=== PATIENT | female | born 1985 | race Caucasian/White ===

== ENCOUNTER 2020-02-27 23:15 | Emergency (ER) | payer OTHER, SELFPAY ==
[2020-02-27 23:21] VITALS: BP 133/66; PULSE 66; RESP 16; TEMP 36.7; O2SAT 99
[2020-02-27 23:57] LABS: Add Manual Diff / Slide Review NO; Basophils Absolute Auto 100 /uL (0-100); Eosinophils Absolute Auto 100 /uL (0-450); Eosinophils Percent Auto 2.2 % (2-4); Hematocrit 35.4 % (36-46); Hemoglobin 12.1 g/dL (12.0-16.0); Lymphocytes Absolute Auto 2800 /uL (1100-4500); Mean Corpuscular HGB Conc 34.3 % (30-36); Mean Corpuscular Hemoglobin 29.6 PG (26-34); Mean Corpuscular Volume 86.4 fL (80-100); Monocytes Absolute Auto 700 /uL (0-900); Monocytes Percent Auto 10.7 % (3-14); Neutrophils Absolute Auto 2900 /uL (1500-7000); Neutrophils Percent Auto 44.1 % (50-75); Platelet Count 278 X10^3/uL (150-400); Red Cell Distribution Width 12.3 % (11.6-14.8); White Blood Cell Count 6.6 X10^3/uL (4.5-11.0)
[2020-02-28 00:12] LABS: PTT Partial Thromboplastin Tim 33 SECONDS (26.4-36.2); Prothrombin Time 11.9 SECONDS (10.1-12.7)
[2020-02-28 00:22] LABS: Alanine Aminotransferase 14 IU/L (<35); Albumin 4.2 g/dL (3.5-5.0); Albumin Globulin Ratio 1.4 (1.0-2.8); Alkaline Phosphatase 34 U/L (38-126); Aspartate Aminotransferase 21 IU/L (14-36); BUN Creatinine Ratio 16.9 (6-22); Bilirubin Total 0.5 mg/dL (0.2-1.3); Blood Urea Nitrogen 14 mg/dL (7-17); Calcium 9.1 mg/dL (8.4-10.2); Carbon Dioxide 29 mmol/L (22-32); Chloride 102 mmol/L (98-107); Estimated Glomerular Filt Rate > 60.0 mL/min (>60); Globulin 3.1 g/dL (1.7-4.1); Glucose 96 mg/dL (70-100); HEMOLYSIS < 15 (0-50); Lipase 76 U/L (23-300); Potassium 3.9 mmol/L (3.4-5.1); Sodium 138 mmol/L (137-145); Total Protein 7.3 g/dL (6.3-8.2)
--- NOTE | 2020-02-28 00:24 | ED.GENADULT ---
HPI - General Adult General Chief complaint: Abdominal Pain Stated complaint: abdominal pain off and on for a month Time Seen by Provider: 02/27/20 23:39 Source: patient Mode of arrival: Ambulatory Limitations: no limitations History of Present Illness HPI narrative: 34-year-old female here for evaluation of right-sided pus right upper quadrant abdominal pain. She states that she has had pain like this off and on for the past several weeks however this evening the pain became somewhat worse so she came to the emergency department for evaluation. No nausea vomiting. No urinary symptoms. No change in bowel habits. States she is approximately alf through her menstrual cycle. She has been evaluated for this pain in the past. Was started on a proton pump inhibitor which she states that she has been taking on a daily basis. No fevers. Does state that the pain moves. Occasional is in the right upper quadrant left lower quadrant and right lower quadrant. She does state that peanut butter makes the symptoms worse. Related Data Allergies Allergy/AdvReac Type Severity Reaction Status Date / Time cefaclor [From [facility]] Allergy Verified 02/27/20 23:23 Review of Systems Constitutional Constitutional: Denies fever(s) and Denies headache(s) ENT Ears, Nose, Mouth, and Throat: Denies headache(s) Cardiovascular Cardiovascular: Denies chest pain and Denies dyspnea Respiratory Respiratory: Denies dyspnea Gastrointestinal Gastrointestinal: Reports abdominal pain, Denies change in bowel habits and Denies vomiting Genitourinary Genitourinary: Denies dysuria Genitourinary: Denies dysuria and Denies vaginal discharge Musculoskeletal Musculoskeletal: Denies arthralgias and Denies myalgias Integumentary/Breasts Skin/Breast: Denies rash Neurologic Neurologic: Denies behavioral changes and Denies headache(s) Psychiatric Psychiatric: Denies behavioral changes Hematologic/Lymphatic Hematologic/Lymphatic: Denies easy bleeding and Denies easy bruising Patient History Medical History Healthy adult (Acute) Social History Smoking Status: Never smoker Smoking Status: Never smoker Exam Initial Vital Signs Initial Vital Signs: Vital Signs Temperature 98.1 F 02/27/20 23:21 Pulse Rate 66 02/27/20 23:21 Respiratory Rate 16 02/27/20 23:21 Blood Pressure 133/66 02/27/20 23:21 Pulse Oximetry 99 02/27/20 23:21 Const General: cooperative and comfortable Limitations: mental status not altered HENMT Head: normal to inspection and normocephalic Resp Effort & Inspection: normal respiratory effort Auscultation: clear to auscultation bilaterally Cardio Rate: regular rate Rhythm: regular rhythm GI Inspection: non-distended Palpation: soft, No firm and tender (Right upper quadrant) Back/Spine/Pelvis Back: No CVA tenderness Skin Lesions: no lesions Rashes: no rashes Neuro General: patient alert and patient awake Cognition: normal cognition Speech: speech normal Sensory Exam: no sensory deficits noted Extrem General: normal to inspection and capillary refill normal Psych Appearance: grossly normal and well kempt Scores GCS [place] coma scale eye opening: Spontaneous Michelle coma scale verbal response: Orientated [place] coma scale motor response: Obey commands Michelle coma scale total score: 15 Course Orders Ordered: ED Orders 02/27/20 23:45 Complete Blood Count AUTO DIFF Stat Comprehensive Metabolic Panel Stat Lipase Stat Partial Thromboplastin Time Stat Prothrombin Time INR Stat Discontinued Medications Tramadol HCl (Ultram 50mg Prepack) 1 bottle MISC SEEINSTR ONE Stop: 02/28/20 00:58 Vital Signs Vital signs: Vital Signs - 8 hr 02/27/20 23:21 02/28/20 01:03 Temperature 98.1 F Pulse Rate 66 68 Respiratory Rate 16 18 Blood Pressure 133/66 130/68 Pulse Oximetry 99 98 Medical Decision Making Lab Data Lab results reviewed: Yes I reviewed the patient's lab results. Result diagrams: 02/27/20 23:45 02/27/20 23:45 Labs: Lab Results 02/27/20 02/27/20 02/27/20 Range/Units 23:45 23:45 23:45 WBC 6.6 (4.5-11.0) X10^3/uL RBC 4.10 (4.0-5.2) X10^6/uL Hgb 12.1 (12.0-16.0) g/dL Hct 35.4 L (36-46) % MCV 86.4 (80-100) fL MCH 29.6 (26-34) PG MCHC 34.3 (30-36) % RDW 12.3 (11.6-14.8) % Plt Count 278 (150-400) X10^3/uL Neut % (Auto) 44.1 L (50-75) % Lymph % (Auto) 42.0 H (25-40) % [place] % (Auto) 10.7 (3-14) % Eos % (Auto) 2.2 (2-4) % Baso % (Auto) 1.0 (0-2) % Neut # (Auto) 2900 (0340-7148) /uL Lymph # (Auto) 2800 (0832-4462) /uL [place] # (Auto) 700 (0-900) /uL Eos # (Auto) 100 (0-450) /uL Baso # (Auto) 100 (0-100) /uL PT 11.9 (10.1-12.7) SECONDS INR 1.0 (0.9-1.3) APTT 33 (26.4-36.2) SECONDS Sodium 138 (137-145) mmol/L Potassium 3.9 (3.4-5.1) mmol/L Chloride 102 (98-107) mmol/L Carbon Dioxide 29 (22-32) mmol/L BUN 14 (7-17) mg/dL Creatinine 0.83 (0.52-1.04) mg/dL Estimated GFR > 60.0 (>60) mL/min BUN/Creatinine Ratio 16.9 (6-22) Glucose 96 (70-100) mg/dL Calcium 9.1 (8.4-10.2) mg/dL Total Bilirubin 0.5 (0.2-1.3) mg/dL AST 21 (14-36) IU/L ALT 14 (<35) IU/L Alkaline Phosphatase 34 L (38-126) U/L Total Protein 7.3 (6.3-8.2) g/dL Albumin 4.2 (3.5-5.0) g/dL Globulin 3.1 (1.7-4.1) g/dL Albumin/Globulin Ratio 1.4 (1.0-2.8) Lipase 76 (23-300) U/L Point of Care Testing Test Results Negative Urine Dip Bedside Urine Glucose Negative Bedside Urine Bilirubin - Negative Bedside Urine Ketone - Negative Urine Specific [place] 1.015 Bedside Urine Occult Blood - Negative Bedside Urine pH 6.0 Bedside Urine Protein - Negative Bedside Urine Urobilinogen - Negative Bedside Urine Nitrite - Negative Bedside Urine Leukocytes - Negative Esterase Point of care testing: Point of Care Testing Test Results Negative Urine Dip Bedside Urine Glucose Negative Bedside Urine Bilirubin - Negative Bedside Urine Ketone - Negative Urine Specific [place] 1.015 Bedside Urine Occult Blood - Negative Bedside Urine pH 6.0 Bedside Urine Protein - Negative Bedside Urine Urobilinogen - Negative Bedside Urine Nitrite - Negative Bedside Urine Leukocytes - Negative Esterase MDM Narrative Medical decision making narrative: test was negative. Urinalysis unremarkable. Labs unremarkable to include LFTs and lipase. Symptoms been off and on for the past several weeks. This potentially could be gallbladder pathology however she does have a relatively benign exam today and her LFTs and lipase are unremarkable. She does state that the pain changes throughout her abdomen which does not point towards gallbladder issues. I feel that we can hold on further workup to include a right upper quadrant ultrasound given her history and physical exam and labs today. I informed the patient that he would be extremely helpful for her to keep a diary of her symptoms to include when she has symptoms and when and if they are related to either her menstrual cycles or eating and the type of foods that she is eating. Patient was given return precautions. Will have her follow-up with her primary provider. She expressed understanding and agreement. Discharge Plan Departure Patient Disposition: Home Clinical Impression: Abdominal pain Discharge Date/Time: 02/28/20 01:03 Instructions: DI for Abdominal Pain-Adult Activity Restrictions/Additional Instructions: Recommend that you do keep a record of the events surrounding the times when you have an increase in your abdominal pain. This will be very helpful with your primary provider in determining what potential further studies you may need. I do recommend you contact the [facility] at [phone] to establish this primary provider. Return to the emergency department for any new or worsening symptoms
[2020-02-28 01:03] VITALS: BP 130/68; PULSE 68; RESP 18; O2SAT 98
== END 2020-02-28 01:03 | disposition home or self-care (01) ==
PROVIDERS: Emergency Provider Emergency Medicine
DX: R10.11 Right upper quadrant pain (principal)
CPT/HCPCS: 36415; 80053; 81003; 81025; 83690; 85025; 85610; 85730; 99282; 99283

== ENCOUNTER 2020-03-12 15:56 | Emergency (ER) | payer OTHER, SELFPAY ==
[2020-03-12 16:10] VITALS: BP 111/53; PULSE 102; RESP 20; TEMP 36.4; O2SAT 100
--- NOTE | 2020-03-12 17:29 | DI.US.S_ITS ---
PROCEDURE: US PELVIC COMPLETE INDICATIONS: RIGHT PELVIC PAIN TECHNIQUE: Real-time scanning was performed of the pelvic organs, with image documentation. Additional endovaginal scanning was necessary due to incomplete visualization of the adnexal and endometrial structures by transabdominal scanning. COMPARISON: None. FINDINGS: Transabdominal scanning: Limited scanning through the kidneys shows no hydronephrosis. No pathologic free abdominal or pelvic fluid. Endovaginal scanning: Uterus: Uterus is normal in size at 10.2 x 4.9 x 6.7 cm. The endometrium measures 16.2 mm in combined thickness. No gross endometrial mass or fluid is seen. No discrete uterine fibroid. Ovaries: Right ovary measures 2.7 x 2 x 3.6 centimeters in size. Left ovary measures 3.5 x 2.8 x 3.1 centimeters in size. Complex cystic structure in left adnexa is seen measures 1.9 x 1.7 x 1.7 centimeters in size. No internal vascularity. Normal arterial and venous flow is seen in bilateral ovaries on color Doppler images. IMPRESSION: 1. Normal appearing uterus and endometrium. 2. Normal appearing right ovary. No evidence of ovarian torsion. Suggestion of a complex cyst or hemorrhagic cyst in left ovary. No solid appearing ovarian lesion. Dictated by: Sinan Mariee M.D. on 03/12/2020 at 17:38 Approved by: Sinan Mariee M.D. on 03/12/2020 at 17:41
[2020-03-12 17:45] LABS: Add Manual Diff / Slide Review NO; Basophils Absolute Auto 0 /uL (0-100); Basophils Percent Auto 0.6 % (0-2); Eosinophils Absolute Auto 100 /uL (0-450); Eosinophils Percent Auto 1.2 % (2-4); Hematocrit 38.9 % (36-46); Hemoglobin 13.3 g/dL (12.0-16.0); Lymphocytes Absolute Auto 2700 /uL (1100-4500); Lymphocytes Percent Auto 42.4 % (25-40); Mean Corpuscular HGB Conc 34.3 % (30-36); Mean Corpuscular Hemoglobin 29.6 PG (26-34); Mean Corpuscular Volume 86.2 fL (80-100); Monocytes Absolute Auto 600 /uL (0-900); Monocytes Percent Auto 9.5 % (3-14); Neutrophils Absolute Auto 3000 /uL (1500-7000); Neutrophils Percent Auto 46.3 % (50-75); Platelet Count 284 X10^3/uL (150-400); Red Blood Cell Count 4.51 X10^6/uL (4.0-5.2); Red Cell Distribution Width 12.2 % (11.6-14.8); White Blood Cell Count 6.5 X10^3/uL (4.5-11.0)
[2020-03-12 18:03] LABS: Lactate (Lactic Acid) 0.5 mmol/L (0.7-2.1)
[2020-03-12 18:04] LABS: Alanine Aminotransferase 13 IU/L (<35); Albumin 4.6 g/dL (3.5-5.0); Albumin Globulin Ratio 1.3 (1.0-2.8); Alkaline Phosphatase 36 U/L (38-126); Amylase 71 U/L (30-110); Aspartate Aminotransferase 21 IU/L (14-36); BUN Creatinine Ratio 13.6 (6-22); Bilirubin Total 0.3 mg/dL (0.2-1.3); Blood Urea Nitrogen 11 mg/dL (7-17); Calcium 9.1 mg/dL (8.4-10.2); Carbon Dioxide 31 mmol/L (22-32); Chloride 104 mmol/L (98-107); Estimated Glomerular Filt Rate > 60.0 mL/min (>60); Globulin 3.5 g/dL (1.7-4.1); Glucose 91 mg/dL (70-100); HEMOLYSIS < 15 (0-50); Lipase 88 U/L (23-300); Potassium 3.8 mmol/L (3.4-5.1); Sodium 140 mmol/L (137-145); Total Protein 8.1 g/dL (6.3-8.2)
[2020-03-12] MEDS: KETOROLAC 60 MG/2 ML VIAL 30 MG IM (19:42)
[2020-03-12 20:04] VITALS: PULSE 92; RESP 20; O2SAT 100
--- NOTE | 2020-03-12 20:17 | ED.ABDPAIN ---
HPI - Abdominal Pain <MICHEL CarboneP-BC - Last Filed: 03/12/20 20:22> General Chief Complaint: Abdominal Pain Stated Complaint: abdominal pain Time Seen by Provider: 03/12/20 16:48 Source: patient Mode of arrival: Ambulatory Limitations: no limitations History of Present Illness HPI narrative: The patient is a 34-year-old female nonsmoker with history of abdominal pain who presents with a chief complaint of continued abdominal pain. She states that this has been going on for several weeks, almost 2 months at this point. A few days ago she felt nauseous. She was having abdominal pain on her right lower quadrant, right upper quadrant, left upper quadrant, but not her left lower quadrant. She was seen and evaluated in the emergency department several weeks ago. She denies any dysuria urgency or frequency. She denies any risk of sexually transmitted infections. She states she is pain-free at this time, her primary care provider wanted to do an outpatient ultrasound, but they were unable to fit her in today so she was referred to the emergency department. Primary concern is possibility of ovarian cyst. She denies any vaginal discharge or vaginal irritation. She has not taken anything to feel better. The patient denies any pain during my interview. Related Data Home Medications Medication Instructions Recorded Confirmed ashwagandha PO 03/06/20 03/12/20 magnesium PO 03/06/20 03/12/20 milk thistle seed extract 140 mg 140 mg PO BID 03/06/20 03/12/20 capsule dwqkcfpwhegz-pjg-lleo-FA-vit K PO 03/06/20 03/12/20 pre and probiotic PO 03/06/20 03/12/20 selenium 200 mcg tablet 200 mcg PO DAILY 03/06/20 03/12/20 turmeric PO 03/06/20 03/12/20 vitamin C PO 03/06/20 03/12/20 vitamin E PO 03/06/20 03/12/20 vitamin a PO 03/06/20 03/12/20 zinc 50 mg tablet 50 mg PO DAILY 03/06/20 03/12/20 Previous Rx's Medication Instructions Recorded ketorolac 10 mg PO TID PRN #14 tab 03/12/20 Allergies Allergy/AdvReac Type Severity Reaction Status Date / Time cefaclor [From [facility]] Allergy Verified 03/06/20 15:49 Review of Systems <ROOPA Carbone - Last Filed: 03/12/20 20:22> Review of Systems Narrative: GENERAL: Denies chills, fatigue, malaise, fever, sweats. HEENT: Denies sinus pain, ear pain, sore throat, difficulty swallowing, dizziness. RESPIRATORY: Denies dyspnea, cough, wheezing, hemoptysis, sputum. CARDIOVASCULAR: Denies chest pain, palpitations, orthopnea, edema, GASTROINTESTINAL: See HPI : Denies dysuria, frequency, incontinence, hematuria, urinary retention. MUSCULOSKELETAL: denies weakness, joint pain, or bony pain SKIN: Denies rash, skin lesions, or other NEUROLOGIC: Denies weakness, headache, numbness, change in speech, confusion, seizures, incoordination. PSYCHIATRIC: No concerning psychosocial issues. 12 point review of systems is negative except for those stated above Patient History <ROOPA Carbone - Last Filed: 03/12/20 20:22> Medical History (Updated 03/12/20 @ 19:58 by ROOPA Carbone) Abnormal Pap smear of cervix (Resolved ~2004) Acne (Acute ~2013) Chicken pox (Resolved ~1992) Chronic back pain (Chronic ~2012) Food intolerance (Acute) Healthy adult (Acute) Human papilloma virus (Resolved ~2004) Measles (Resolved ~1989) Shoulder pain (Chronic ~2015) Family History Mother Gallbladder sludge Hyperlipidemia Colon polyps Hypertension Grandfather Skin cancer History of heart disease Hyperlipidemia Hypertension Diverticulitis Pancreatitis Grandmother Rectal cancer Diabetes mellitus History of heart disease Hyperlipidemia Hypertension Social History Smoking Status: Never smoker Smoking Status: Never smoker Exam <ROOPA Carbone - Last Filed: 03/12/20 20:22> Narrative Exam Narrative: GENERAL: This is a well-nourished, well-developed patient, in no acute distress HEAD: Atraumatic. Normocephalic. No temporal or scalp tenderness. EYES: Pupils equal round and reactive. Extraocular motions intact. No scleral icterus. No injection or drainage. ENT: Nose without bleeding, purulent drainage or septal hematoma. Throat without erythema, tonsillar hypertrophy or exudate. Uvula midline. Airway patent. NECK: Trachea midline. No JVD or lymphadenopathy. Supple, nontender, no meningeal signs. CARDIOVASCULAR: Regular rate and rhythm RESPIRATORY: Clear to auscultation. Breath sounds equal bilaterally. No wheezes, rales, or rhonchi. No cough. No increased respiratory effort. No accessory muscle use. GASTROINTESTINAL: Abdomen soft, non-tender, nondistended. No hepato-splenomegaly, or palpable masses. No guarding. Active bowel sounds all 4 quadrants. EXTREMITIES: No clubbing, cyanosis, or edema. No joint tenderness, effusion, or edema noted. BACK: Nontender without deformity or crepitance. No flank tenderness. NEURO: AOx3. SKIN: No rash or erythema on visible skin Initial Vital Signs Initial Vital Signs: Vital Signs Temperature 97.5 F L 03/12/20 16:10 Pulse Rate 102 H 03/12/20 16:10 Respiratory Rate 03/12/20 16:10 Blood Pressure 111/53 L 03/12/20 16:10 Pulse Oximetry 100 03/12/20 16:10 <Rayray Eli DO - Last Filed: 03/12/20 21:39> Initial Vital Signs Initial Vital Signs: Vital Signs Temperature 97.5 F L 03/12/20 16:10 Pulse Rate 102 H 03/12/20 16:10 Respiratory Rate 03/12/20 16:10 Blood Pressure 111/53 L 03/12/20 16:10 Pulse Oximetry 100 03/12/20 16:10 Course <WERO Carbone-DANISHA - Last Filed: 03/12/20 20:22> Orders Ordered: ED Orders 03/12/20 17:29 US pelvic complete Stat 03/12/20 17:35 Amylase Stat Complete Blood Count AUTO DIFF Stat Comprehensive Metabolic Panel Stat Lactate (Lactic Acid) Stat Lipase Stat Discontinued Medications Ketorolac Tromethamine (Toradol) 30 mg IM NOW ONE Stop: 03/12/20 19:36 Last Admin: 03/12/20 19:42 Dose: 30 mg Documented by: APOORVA Vital Signs Vital signs: Vital Signs - 8 hr 03/12/20 16:10 03/12/20 20:04 Temperature 97.5 F L Pulse Rate 102 H 92 H Respiratory Rate 20 20 Blood Pressure 111/53 L Pulse Oximetry 100 100 <Rayray Eli DO - Last Filed: 03/12/20 21:39> Orders Ordered: ED Orders 03/12/20 17:29 US pelvic complete Stat 03/12/20 17:35 Amylase Stat Complete Blood Count AUTO DIFF Stat Comprehensive Metabolic Panel Stat Lactate (Lactic Acid) Stat Lipase Stat Discontinued Medications Ketorolac Tromethamine (Toradol) 30 mg IM NOW ONE Stop: 03/12/20 19:36 Last Admin: 03/12/20 19:42 Dose: 30 mg Documented by: APOORVA Vital Signs Vital signs: Vital Signs - 8 hr 03/12/20 16:10 03/12/20 20:04 Temperature 97.5 F L Pulse Rate 102 H 92 H Respiratory Rate 20 20 Blood Pressure 111/53 L Pulse Oximetry 100 100 MDM - Abdominal Pain <WERO Carbone-DANISHA - Last Filed: 03/12/20 20:22> Lab Data Attestation: I reviewed the patient's lab results. Result diagrams: 03/12/20 17:35 03/12/20 17:35 Labs: Lab Results 03/12/20 03/12/20 03/12/20 Range/Units 17:35 17:35 17:35 WBC 6.5 (4.5-11.0) X10^3/uL RBC 4.51 (4.0-5.2) X10^6/uL Hgb 13.3 (12.0-16.0) g/dL Hct 38.9 (36-46) % MCV 86.2 (80-100) fL MCH 29.6 (26-34) PG MCHC 34.3 (30-36) % RDW 12.2 (11.6-14.8) % Plt Count 284 (150-400) X10^3/uL Neut % (Auto) 46.3 L (50-75) % Lymph % (Auto) 42.4 H (25-40) % [place] % (Auto) 9.5 (3-14) % Eos % (Auto) 1.2 L (2-4) % Baso % (Auto) 0.6 (0-2) % Neut # (Auto) 3000 (6950-7086) /uL Lymph # (Auto) 2700 (7992-6861) /uL [place] # (Auto) 600 (0-900) /uL Eos # (Auto) 100 (0-450) /uL Baso # (Auto) 0 (0-100) /uL Sodium 140 (137-145) mmol/L Potassium 3.8 (3.4-5.1) mmol/L Chloride 104 (98-107) mmol/L Carbon Dioxide 31 (22-32) mmol/L BUN 11 (7-17) mg/dL Creatinine 0.81 (0.52-1.04) mg/dL Estimated GFR > 60.0 (>60) mL/min BUN/Creatinine Ratio 13.6 (6-22) Glucose 91 (70-100) mg/dL Lactate 0.5 L (0.7-2.1) mmol/L Calcium 9.1 (8.4-10.2) mg/dL Total Bilirubin 0.3 (0.2-1.3) mg/dL AST 21 (14-36) IU/L ALT 13 (<35) IU/L Alkaline Phosphatase 36 L (38-126) U/L Total Protein 8.1 (6.3-8.2) g/dL Albumin 4.6 (3.5-5.0) g/dL Globulin 3.5 (1.7-4.1) g/dL Albumin/Globulin Ratio 1.3 (1.0-2.8) Amylase 71 (30-110) U/L Lipase 88 (23-300) U/L Point of care testing: Point of Care Testing Test Results Negative Urine Dip Bedside Urine Glucose Negative Bedside Urine Bilirubin - Negative Bedside Urine Ketone - Negative Urine Specific [place] 1.010 Bedside Urine Occult Blood - Negative Bedside Urine pH 22,222 Bedside Urine Protein - Negative Bedside Urine Urobilinogen - Negative Bedside Urine Nitrite - Negative Bedside Urine Leukocytes - Negative Esterase Imaging Data US - SLUDGE FILTRATION ATTENDANT: Radiologist's Impression: [address] [place] [id number] Ultrasound Report Signed Patient: Jessica Bishop RMR#: [id number] : 1985Acct:[id number] Age/Sex: 34 / FDate of Service: 03/12/20 Loc: ED Accession Number: [id number] Procedure: US pelvic complete Ordering Provider: Leticia Orellana EXECUTIVE COMPENSATION ANALYST- PROCEDURE: US PELVIC COMPLETE INDICATIONS: RIGHT PELVIC PAIN TECHNIQUE: Real-time scanning was performed of the pelvic organs, with image documentation. Additional endovaginal scanning was necessary due to incomplete visualization of the adnexal and endometrial structures by transabdominal scanning. COMPARISON: None. FINDINGS: Transabdominal scanning: Limited scanning through the kidneys shows no hydronephrosis. No pathologic free abdominal or pelvic fluid. Endovaginal scanning: Uterus: Uterus is normal in size at 10.2 x 4.9 x 6.7 cm. The endometrium measures 16.2 mm in combined thickness. No gross endometrial mass or fluid is seen. No discrete uterine fibroid. Ovaries: Right ovary measures 2.7 x 2 x 3.6 centimeters in size. Left ovary measures 3.5 x 2.8 x 3.1 centimeters in size. Complex cystic structure in left adnexa is seen measures 1.9 x 1.7 x 1.7 centimeters in size. No internal vascularity. Normal arterial and venous flow is seen in bilateral ovaries on color Doppler images. IMPRESSION: 1. Normal appearing uterus and endometrium. 2. Normal appearing right ovary. No evidence of ovarian torsion. Suggestion of a complex cyst or hemorrhagic cyst in left ovary. No solid appearing ovarian lesion. Dictated by: Sinan Mariee M.D. on 03/12/2020 at 17:38 Approved by: Sinan Mariee M.D. on 03/12/2020 at 17:41 [facility] Narrative Medical decision making narrative: The patient is a 34-year-old female who presents with a chief complaint of about 7 weeks of abdominal pain. Her labs are grossly normal, no elevated lactate, no leukocytosis. Urine has no signs of infection. Pelvic ultrasound shows complex ovarian cyst on the left side, which could be causing referred pain on the right side. I did discuss the possibility of appendicitis, though it is reassuring she has no leukocytosis, no fevers etcetera. Discussed at length return precautions including abdominal pain with fever, inability keep down fluids etcetera. We discussed the possibility of pelvic inflammatory disease, the patient appears low risk as she is pain-free during my evaluation, has no concerning ship keeper findings such as discharge, and declines pelvic examination at this point as she found the ultrasound intrusive enough. I discussed at length the importance of follow-up, possibility of reimaging in several weeks, discussed trial of Toradol. Discussed at length return precautions including sudden severe pain, increased risk of torsion, coming back to ER for acute concerns as well as follow-up with primary care provider. Patient has no questions or concerns upon discharge and states understanding return precautions as well as follow-up care. <Rayray Giovannitheresa, DO - Last Filed: 03/12/20 21:39> Lab Data Labs: Lab Results 03/12/20 03/12/20 03/12/20 Range/Units 17:35 17:35 17:35 WBC 6.5 (4.5-11.0) X10^3/uL RBC 4.51 (4.0-5.2) X10^6/uL Hgb 13.3 (12.0-16.0) g/dL Hct 38.9 (36-46) % MCV 86.2 (80-100) fL MCH 29.6 (26-34) PG MCHC 34.3 (30-36) % RDW 12.2 (11.6-14.8) % Plt Count 284 (150-400) X10^3/uL Neut % (Auto) 46.3 L (50-75) % Lymph % (Auto) 42.4 H (25-40) % [place] % (Auto) 9.5 (3-14) % Eos % (Auto) 1.2 L (2-4) % Baso % (Auto) 0.6 (0-2) % Neut # (Auto) 3000 (4052-1726) /uL Lymph # (Auto) 2700 (9409-3720) /uL [place] # (Auto) 600 (0-900) /uL Eos # (Auto) 100 (0-450) /uL Baso # (Auto) 0 (0-100) /uL Sodium 140 (137-145) mmol/L Potassium 3.8 (3.4-5.1) mmol/L Chloride 104 (98-107) mmol/L Carbon Dioxide 31 (22-32) mmol/L BUN 11 (7-17) mg/dL Creatinine 0.81 (0.52-1.04) mg/dL Estimated GFR > 60.0 (>60) mL/min BUN/Creatinine Ratio 13.6 (6-22) Glucose 91 (70-100) mg/dL Lactate 0.5 L (0.7-2.1) mmol/L Calcium 9.1 (8.4-10.2) mg/dL Total Bilirubin 0.3 (0.2-1.3) mg/dL AST 21 (14-36) IU/L ALT 13 (<35) IU/L Alkaline Phosphatase 36 L (38-126) U/L Total Protein 8.1 (6.3-8.2) g/dL Albumin 4.6 (3.5-5.0) g/dL Globulin 3.5 (1.7-4.1) g/dL Albumin/Globulin Ratio 1.3 (1.0-2.8) Amylase 71 (30-110) U/L Lipase 88 (23-300) U/L Point of care testing: Point of Care Testing Test Results Negative Urine Dip Bedside Urine Glucose Negative Bedside Urine Bilirubin - Negative Bedside Urine Ketone - Negative Urine Specific [place] 1.010 Bedside Urine Occult Blood - Negative Bedside Urine pH 22,222 Bedside Urine Protein - Negative Bedside Urine Urobilinogen - Negative Bedside Urine Nitrite - Negative Bedside Urine Leukocytes - Negative Esterase Discharge Plan Departure Patient Disposition: Home Clinical Impression: Abdominal pain Qualifiers: Abdominal location: generalized Qualified Code(s): R10.84 - Generalized abdominal pain Ovarian cyst Qualifiers: Laterality: left Qualified Code(s): N83.202 - Unspecified ovarian cyst, left side Discharge Date/Time: 03/12/20 20:05 Instructions: DI for Ovarian Cyst, DI for Abdominal Pain-Adult Activity Restrictions/Additional Instructions: Thank you for trusting us with your care today. As discussed, your imaging shows a cyst in your left ovary. Please follow-up with primary care provider in the next few days. Please come back to emergency department for any acute concerns such as inability keep down fluids, sudden severe pain etcetera I sent a prescription of ketorolac or Toradol to [facility]. I have given you a prescription of Toradol. This is an NSAID. Do not combine it with other NSAIDs such as Aleve or ibuprofen. I suggest taking it with some food, as it can irritate your stomach. Prescriptions: New ketorolac 10 mg tablet 10 mg PO TID PRN (Reason: pain) Qty: 14 RF: 0 No Action yksqszvnprpj-nob-quyb-FA-vit K PO RF: 0 selenium 200 mcg tablet 200 mcg PO DAILY RF: 0 zinc 50 mg tablet 50 mg PO DAILY RF: 0 vitamin a 300 mcg PO RF: 0 vitamin C 150 mcg PO RF: 0 vitamin E 22.5 mcg PO RF: 0 milk thistle seed extract 140 mg capsule 140 mg PO BID RF: 0 pre and probiotic 80 mg PO RF: 0 magnesium 325 mg PO RF: 0 ashwagandha 25 mg PO RF: 0 turmeric 450 mg PO RF: 0 Referrals: Juvenal Abreu ARNP [Primary Care Provider] - <Rayray Eli DO - Last Filed: 03/12/20 21:39> Cosign ED Attending Cosignature Attestation: Dr Eli Co-Sign Statement: I was available for consultation during this patient's emergency department visit. This chart is signed by myself for administrative purposes only. I did not have direct contact with this patient during this visit. They were seen independently by the [facility].
== END 2020-03-12 20:05 | disposition home or self-care (01) ==
PROVIDERS: Emergency Provider Nurse Practitioner Family; PCP Registered Nurse Diabetes Educator
DX: N83.202 Unspecified ovarian cyst, left side (principal); R10.84 Generalized abdominal pain
CPT/HCPCS: 36415; 76830; 76856; 80053; 81003; 81025; 82150; 83605; 83690; 85025; 96372; 99283; 99284; J1885

== ENCOUNTER 2020-04-06 18:12 | Emergency (ER) | payer OTHER, SELFPAY ==
[2020-04-06 18:19] VITALS: BP 124/58; PULSE 88; RESP 18; TEMP 36.7; O2SAT 99; BMI 20.7
[2020-04-06 18:59] LABS: Bacteria Urine None Seen; RBC Urine None Seen (0-5/HPF)
--- NOTE | 2020-04-06 19:00 | ED.FEMALEGU ---
HPI - Female Genitourinary <TALON Jo - Last Filed: 04/07/20 01:19> General Chief complaint: Urogenital-Female Stated complaint: POSSIBLE UTI Time Seen by Provider: 04/06/20 18:25 Source: patient Mode of arrival: Ambulatory Limitations: no limitations History of Present Illness HPI Narrative: This is a 34 year female, nonsmoker, who has noncontributory medical history presents to ED with chief complain of urinary frequency, burning with the urination, hematuria. Patient had alcohol drinks yesterday and felt sick to stomach when she woke up this morning and felt very dehydrated. After a nap when she woke up this afternoon, she saw concentrated urine or hematuria. Patient denies fever, chills, flank pain. Last UTI was about 10 years ago. Patient denies unusual vaginal discharge or perineal lesions. Patient reports no concerns for STIs. Patient had hydrated well during today and reports the urinary symptoms improved mildly. Related Data Home Medications Medication Instructions Recorded Confirmed ashwagandha PO 03/06/20 03/18/20 magnesium PO 03/06/20 03/18/20 milk thistle seed extract 140 mg 140 mg PO BID 03/06/20 03/18/20 capsule lyhrjgzjywwh-dsh-jefi-FA-vit K PO 03/06/20 03/18/20 pre and probiotic PO 03/06/20 03/18/20 selenium 200 mcg tablet 200 mcg PO DAILY 03/06/20 03/18/20 turmeric PO 03/06/20 03/18/20 vitamin C PO 03/06/20 03/18/20 vitamin E PO 03/06/20 03/18/20 vitamin a PO 03/06/20 03/18/20 zinc 50 mg tablet 50 mg PO DAILY 03/06/20 03/18/20 Allergies Allergy/AdvReac Type Severity Reaction Status Date / Time cefaclor [From [facility]] Allergy Verified 03/18/20 10:44 Review of Systems <TALON Jo - Last Filed: 04/07/20 01:19> Review of Systems Narrative: General: Denies fever, chills, fatigue, malaise, sweats. Respiratory: Denies dyspnea, cough, wheezing, hemoptysis, sputum. Cardiovascular: Denies chest pain, palpitations, orthopnea, edema. Gastrointestinal: Denies (+) resolved nausea, vomiting, abdominal pain, diarrhea, constipation, melena. : See HPI Musculoskeletal: Denies weakness, joint pain or bony pain. Skin: Denies rash, skin lesions, or other. Patient History <TALON Jo - Last Filed: 04/07/20 01:19> Medical History Abnormal Pap smear of cervix (Resolved ~2004) Acne (Acute ~2013) Chicken pox (Resolved ~1992) Chronic back pain (Chronic ~2012) Food intolerance (Acute) Healthy adult (Acute) Human papilloma virus (Resolved ~2004) Measles (Resolved ~1989) Shoulder pain (Chronic ~2015) Family History Mother Gallbladder sludge Hyperlipidemia Colon polyps Hypertension Grandfather Skin cancer History of heart disease Hyperlipidemia Hypertension Diverticulitis Pancreatitis Grandmother Rectal cancer Diabetes mellitus History of heart disease Hyperlipidemia Hypertension Smoking Status: Never smoker alcohol intake frequency: holidays/special occasions only Substance Use Type: does not use Exam <TALON Jo - Last Filed: 04/07/20 01:19> Narrative Exam Narrative: GEN: Alert, oriented x 3, well appearing and nourished, and in no acute distress. Head: Normal cephalic, atraumatic. No scalp or temporal tenderness, palpable mass or rash. EYES: Pupils are equal, round, and reactive to light and accommodation. Extraocular muscles are intact bilaterally. There is no subconjunctival hemorrhage, exudate and sclera non-icteric. ENT: Hearing grossly intact. Nose without bleeding, purulent discharge or deviation. Mucous membrane moist, no mucosal lesion. Throat without erythema, tonsillar hypertrophy or exudate. Uvula in midline, airway patent. Neck: Trachea in midline. No JVD, non-tender without lymphadenopathy. No masses or thyroid megaly. Supple, non-tender and no meningeal signs. CARDIAC: Normal regular rate and rhythm without murmurs, gallops, or rubs. No chest wall tenderness. No peripheral edema, cyanosis or pallor. Capillary refill is less than 2 seconds. RESPIRATORY: Lungs are clear to auscultate bilaterally. No cough, wheezes, rales, or rhonchi. No stridor, respiratory distress, increase work of breathing, or accessary muscle used. ABD: Abdomen soft, nontender and non-distended. No guarding or rebound tenderness to palpate. Bowel sounds are normal in all 4 quadrants. There is no palpable masses or organomegaly. EXT: Full painless ROM of all extremities with no loss of sensation, strength, effusion or edema. SKIN: Warm, dry, normal color for patient. No erythema, lesions or rash over visible areas. BACK: Nontender without deformity or crepitance. No flank tenderness. NEUROLOGICAL: Alert and oriented to place, time and person. Sensation and motor function intact bilaterally. No facial droops, dysphasia. PSYCHIATRIC: Good judgement and reason, without hallucinations, abnormal affect or abnormal behaviors during the examination. Patient is not suicidal. Initial Vital Signs Initial Vital Signs: Vital Signs Temperature 98.1 F 04/06/20 18:19 Pulse Rate 88 04/06/20 18:19 Respiratory Rate 18 04/06/20 18:19 Blood Pressure 124/58 L 04/06/20 18:19 Pulse Oximetry 99 04/06/20 18:19 <Charles Landaverde MD - Last Filed: 04/07/20 01:28> Initial Vital Signs Initial Vital Signs: Vital Signs Temperature 98.1 F 04/06/20 18:19 Pulse Rate 88 04/06/20 18:19 Respiratory Rate 18 04/06/20 18:19 Blood Pressure 124/58 L 04/06/20 18:19 Pulse Oximetry 99 04/06/20 18:19 Scores <TALON Jo - Last Filed: 04/07/20 01:19> GCS Michelle coma scale eye opening: Spontaneous [place] coma scale verbal response: Orientated Michelle coma scale motor response: Obey commands Michelle coma scale total score: 15 qSOFA Altered Mental Status (GCS <15): No Respiratory rate greater than/equal to 22: No Systolic blood pressure less than or equal to 100: No qSOFA Total: 0 0-1 Not High Risk 1-3 High risk Course <TALON Jo - Last Filed: 04/07/20 01:19> Orders Ordered: ED Orders 04/06/20 18:45 Urine Culture Stat Urine Microscopic Stat Vital Signs Vital signs: Vital Signs - 8 hr 04/06/20 18:19 Temperature 98.1 F Pulse Rate 88 Respiratory Rate 18 Blood Pressure 124/58 L Pulse Oximetry 99 <Charles Landaverde MD - Last Filed: 04/07/20 01:28> Orders Ordered: ED Orders 04/06/20 18:45 Urine Culture Stat Urine Microscopic Stat Vital Signs Vital signs: Vital Signs - 8 hr 04/06/20 18:19 Temperature 98.1 F Pulse Rate 88 Respiratory Rate 18 Blood Pressure 124/58 L Pulse Oximetry 99 MDM - Female Genitourinary <Iron VillalobosTALON - Last Filed: 04/07/20 01:19> Differential Diagnosis Differential diagnosis: Likely urinary tract infection, cystitis and other (kidney stone, STIs, urethritis) Medical Records Attestation: I reviewed the patient's medical records. Lab Data Attestation: I reviewed the patient's lab results. Labs: Lab Results 04/06/20 Range/Units 18:45 Urine RBC None seen (0-5/HPF) Urine WBC 1-5/hpf (0-5/HPF) Ur Squamous Epith Cells 0-1 /hpf (0-5/HPF) Urine Bacteria None seen (None) Ur Culture Indicated? Cult not indicated Urine Dip Bedside Urine Glucose Negative Bedside Urine Bilirubin - Negative Bedside Urine Ketone - Negative Urine Specific Kress 1.010 Bedside Urine Occult Blood +++ Bedside Urine pH 6.0 Bedside Urine Protein - Negative Bedside Urine Urobilinogen - Negative Bedside Urine Nitrite - Negative Bedside Urine Leukocytes - Negative Esterase [facility] Narrative Medical decision making narrative: This is a 34 year female who presents to ED with urinary symptoms of urinary frequency and dysuria and possible hematuria. Patient denies constitutional symptoms, flank pain, unusual vaginal discharge, perineum lesions. Patient is sexually active but denies STI concerns and defers testing at this time. POC UA result without urine leukoesterase or nitrites but occult blood. Urine hCG was negative. The patient's presentation is not consistent with kidney stone or pyelonephritis. Patient is afebrile with stable blood pressure with within normal range of heart rate and respiration. No toxic appearing. Findings were shared with the patient. Given patient has urinary symptoms with clean UA result, urine cultures added and pending. Patient informed that she will receive a phone call if culture comes back positive and requires antibiotic treatment. Patient declined Pyridium. She advised to hydrate well and to take eexs-ssl-aqtspld Tylenol and or Motrin as needed for discomfort. Return precautions were discussed with patient and Patient verbalized understanding in agreement with treatment plan. <Charles Landaverde MD - Last Filed: 04/07/20 01:28> Lab Data Labs: Lab Results 04/06/20 Range/Units 18:45 Urine RBC None seen (0-5/HPF) Urine WBC 1-5/hpf (0-5/HPF) Ur Squamous Epith Cells 0-1 /hpf (0-5/HPF) Urine Bacteria None seen (None) Ur Culture Indicated? Cult not indicated Urine Dip Bedside Urine Glucose Negative Bedside Urine Bilirubin - Negative Bedside Urine Ketone - Negative Urine Specific Kress 1.010 Bedside Urine Occult Blood +++ Bedside Urine pH 6.0 Bedside Urine Protein - Negative Bedside Urine Urobilinogen - Negative Bedside Urine Nitrite - Negative Bedside Urine Leukocytes - Negative Esterase Discharge Plan Departure Patient Disposition: Home Clinical Impression: Dysuria Discharge Date/Time: 04/06/20 20:12 Instructions: DI for Dysuria -- Adult Activity Restrictions/Additional Instructions: You have been diagnosed with [dysuria. Urine test does not indicate infection. Urine culture is pending. You will receive a phone call if urine culture comes back positive and requires antibiotic medication.]. What to do: *Take your medications as directed. Please increase oral hydration and you can take bgrt-[id number] Tylenol and or Motrin as needed for discomfort. *Follow up with your primary care provider in 2-3 days, call for an appointment. Let them know you were seen in the ED and that we asked you to be seen in follow up. *Return to ED if you have any new, worsening, or concerning symptoms, such as [fever, back pain, unable to tolerate fluids, chest pain, breathing difficulty, worsening urinary symptoms or any acute concerns]. Prescriptions: No Action pnxweybbcvni-qoq-bvpd-FA-vit K PO RF: 0 selenium 200 mcg tablet 200 mcg PO DAILY RF: 0 zinc 50 mg tablet 50 mg PO DAILY RF: 0 vitamin a 300 mcg PO RF: 0 vitamin C 150 mcg PO RF: 0 vitamin E 22.5 mcg PO RF: 0 milk thistle seed extract 140 mg capsule 140 mg PO BID RF: 0 pre and probiotic 80 mg PO RF: 0 magnesium 325 mg PO RF: 0 ashwagandha 25 mg PO RF: 0 turmeric 450 mg PO RF: 0 Referrals: Juvenal Abreu ARNP [Primary Care Provider] - <Charles Landaverde MD - Last Filed: 04/07/20 01:28> Cosign ED Attending Cosignature Attestation: I was immediately available in the department for consultation. This documentation has been reviewed and I agree with assessment and plan. Supervised by Charles Landaverde MD
[2020-04-06 19:25] LABS: Culture Indicated Urine Cult Not Indicated; Squamous Epithelial Cell Urine 0-1 /HPF (0-5/HPF); WBC Urine 1-5/HPF (0-5/HPF)
== END 2020-04-06 20:12 | disposition home or self-care (01) ==
PROVIDERS: Emergency Provider Nurse Practitioner Family; PCP Registered Nurse Diabetes Educator
DX: R30.0 Dysuria (principal); R31.9 Hematuria, unspecified
CPT/HCPCS: 81003; 81015; 87086; 99282

== ENCOUNTER → 2020-05-30 09:50 | Outpatient (CLI) | payer OTHER, SELFPAY ==
--- NOTE | 2020-05-30 09:55 | DIET.PN ---
Dietary Progress Note Assessment: 34y F here for help with possible dietary causes of intermittent abd px so LLQ, URQ, across SI joint in lower back. Pt reports px started in December when she moved to [place] from [place] through the with her and 7yo daughter. 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 Foods which aggravate: Peanut butter- gall bladder Fiber gummies-bloating Vital Proteins Collagen powder flour tortillas blueberries coconut oil white potatoes (russet, especially) Avoids: processed foods, sugar, etoh, high fat, high sodium, vinegar (gall bladder support) Eats a lot of: cabbage, broccoli, carrots, cauliflower, sweet potatoes, nuts seeds, raudel, flax, hemp, avocado, apple, pineapple, chicken, turkey, jaz rice, brown rice, squash, bone broth, frozen mixed veggies, ava, turmeric, paprika, black beans, garbanzo beans eats mostly organic 3w on and 3w off vitamins ashwagandha PO 03/06/20 [History Confirmed 03/18/20] magnesium PO 03/06/20 [History Confirmed 03/18/20] milk thistle seed extract 140 mg capsule 140 mg PO BID 03/06/20 [History Confirmed 03/18/20] nhmicgzqsolr-pgj-jojo-FA-vit K PO 03/06/20 [History Confirmed 03/18/20] pre and probiotic PO 03/06/20 [History Confirmed 03/18/20] selenium 200 mcg tablet 200 mcg PO DAILY 03/06/20 [History Confirmed 03/18/20] turmeric PO 03/06/20 [History Confirmed 03/18/20] vitamin C PO 03/06/20 [History Confirmed 03/18/20] vitamin E PO 03/06/20 [History Confirmed 03/18/20] vitamin a PO 03/06/20 [History Confirmed 03/18/20] zinc 50 mg tablet 50 mg PO DAILY 03/06/20 [History Confirmed 03/18/20] HT: 165cm WT: 58.7kg BMI: 21.5 Pt has been to ED several times with no definitive answers except URQ seems to be gallbladder pain with high fat meals and pt had hemmhoragic ovarian cyst. Pt reports sx are much reduced since limiting a few foods from her diet. Before pt moved this summer she did a lot of self care including regular physical activity, pt reports not having time or the mental capacity to do these things right now. RD Impression: Pts considerable stress is likely contributing to her sx causing her bathtub to overflow becoming more sensitive to certain foods. Pt tends to avoid gallbladder supportive foods (sour, vinegar, pickled, bitter). Pts normal coping behaviors are not being done right now. Pt seems to have good intuition and is managing food sx well at this time. Even with the foods she is avoiding, pts diet is healthy and nutrient rich. Nutrition Diagnosis: intermittent migrating abdominal pain r/t sustained high stress levels aeb pt sx started in December 2019 during major life interruptions, pt reports never being sensitive to foods prior to this, pt reports not managing her stress like she used to, RD analysis finds little connection between foods causing px. Interventions: 1. Discussed stress and its implications to digestion. Encouraged pt to fit in small self care when she is able. Encouraged pt to continue avoiding trigger foods at this time but to eventually try to bring them back in once stress levels have gone down. 2. To support gall bladder, encouraged pt to avoid large fat intake at any one time. Encouraged pt to consume more bitter greens and vegetables such as mustard/turnip greens, radishes. 3. To support healthy bowl movements, encouraged intake of warm liquids victorino herbal tea, bone broth. Monitoring/Evaluations: pt will call to schedule f/u if sx do not resolve or get worse. Encouraged pt to f/u c PCP if gall bladder px persists.
== END ==
PROVIDERS: PCP Registered Nurse Diabetes Educator; Referring Provider Registered Nurse Diabetes Educator; Visit Provider Registered Nurse Diabetes Educator
DX: R10.11 Right upper quadrant pain (principal); R10.32 Left lower quadrant pain; M54.5 Low back pain; Z73.3 Stress, not elsewhere classified; Z71.3 Dietary counseling and surveillance
CPT/HCPCS: 97802

== ENCOUNTER → 2020-07-04 11:21 | Outpatient (CLI) | payer OTHER, SELFPAY ==
[2020-07-04 11:28] LABS: Bacteria Urine None Seen; RBC Urine None Seen (0-5/HPF); WBC Urine None Seen (0-5/HPF)
[2020-07-04 11:59] LABS: Add Manual Diff / Slide Review NO; Basophils Absolute Auto 0 /uL (0-100); Basophils Percent Auto 0.2 % (0-2); Eosinophils Absolute Auto 100 /uL (0-450); Eosinophils Percent Auto 1.1 % (2-4); Hematocrit 36.8 % (36-46); Hemoglobin 12.4 g/dL (12.0-16.0); Lymphocytes Absolute Auto 2000 /uL (1100-4500); Lymphocytes Percent Auto 28.3 % (25-40); Mean Corpuscular HGB Conc 33.6 % (30-36); Mean Corpuscular Hemoglobin 29.2 PG (26-34); Mean Corpuscular Volume 86.8 fL (80-100); Monocytes Absolute Auto 800 /uL (0-900); Monocytes Percent Auto 10.5 % (3-14); Neutrophils Absolute Auto 4300 /uL (1500-7000); Neutrophils Percent Auto 59.9 % (50-75); Platelet Count 288 X10^3/uL (150-400); Red Blood Cell Count 4.25 X10^6/uL (4.0-5.2); Red Cell Distribution Width 12.3 % (11.6-14.8); White Blood Cell Count 7.2 X10^3/uL (4.5-11.0)
[2020-07-04 12:05] LABS: Appearance Urine UA CLEAR; Bilirubin Urine UA NEGATIVE (NEGATIVE); Color Urine UA YELLOW; Glucose Urine UA NEGATIVE (Negative); Ketones Urine UA NEGATIVE (NEGATIVE); Leukocyte Esterase Urine UA NEGATIVE (NEGATIVE); Nitrite Urine UA NEGATIVE (Negative); Occult Blood Urine UA TRACE-LYSED (Negative); Protein Urine UA NEGATIVE (Negative); Urobilinogen Urine UA 0.2 E.U./dL (0.2)
[2020-07-04 12:12] LABS: Culture Indicated Urine Cult Not Indicated; Urine Comments Microscopic Normal
[2020-07-04 12:17] LABS: Alanine Aminotransferase 13 IU/L (<35); Albumin 4.6 g/dL (3.5-5.0); Albumin Globulin Ratio 1.4 (1.0-2.8); Alkaline Phosphatase 41 U/L (38-126); Amylase 48 U/L (30-110); Aspartate Aminotransferase 20 IU/L (14-36); BUN Creatinine Ratio 16.2 (6-22); Bilirubin Total 0.5 mg/dL (0.2-1.3); Blood Urea Nitrogen 12 mg/dL (7-17); Calcium 9.1 mg/dL (8.4-10.2); Carbon Dioxide 30 mmol/L (22-32); Chloride 104 mmol/L (98-107); Estimated Glomerular Filt Rate > 60.0 mL/min (>60); Globulin 3.3 g/dL (1.7-4.1); Glucose 97 mg/dL (70-100); HEMOLYSIS < 15 (0-50); Lipase 119 U/L (23-300); Potassium 4.4 mmol/L (3.4-5.1); Sodium 138 mmol/L (137-145); Total Protein 7.9 g/dL (6.3-8.2)
== END ==
PROVIDERS: PCP Registered Nurse Diabetes Educator; Referring Provider Family Medicine; Visit Provider Family Medicine
DX: R10.9 Unspecified abdominal pain (principal)
CPT/HCPCS: 36415; 80053; 81001; 82150; 83690; 85025